=== PATIENT | male | born 1970 | race Caucasian/White ===

== ENCOUNTER 2020-11-13 11:00 | Emergency (ER) | payer MEDICAID, OTHER ==
[~2020-11-13] VITALS: Ht 180.3 cm; Wt 100.0 kg
[2020-11-13 11:58] LABS: BASOPHILS % 0.8 % (0.0-2.0); HEMATOCRIT. 44.7 % (42.0-52.0); HEMOGLOBIN. 15.4 g/dL (14.0-18.0); LYMPHOCYTES % 23.9 % (20.0-50.0); MEAN CORPUSCULAR HEMOGLOBIN 30.6 pg (28.0-32.0); MEAN PLATELET VOLUME 6.9 fl (7.4-10.4); MONOCYTES % 5.1 % (2.0-8.0); NEUTROPHILS % 67.2 % (40.0-76.0); PLATELET 276 x1000/uL (130-400); RED BLOOD CELL COUNT 5.02 mill/uL (4.7-6.1); RED CELL DISTRIBUTION WIDTH 12.6 % (11.6-14.6)
[2020-11-13 12:08] LABS: CHLORIDE 104 mEq/L (98-107)
[2020-11-13 12:21] LABS: VALPROIC ACID < 3.0 ug/mL (50-100)
[2020-11-13 12:24] LABS: CLARITY URINE CLEAR (CLEAR); COLOR URINE YELLOW (YELLOW); KETONES URINE NEGATIVE (NEGATIVE); LEUKOCYTE ESTERASE URINE NEGATIVE (NEGATIVE); NITRITE URINE NEGATIVE (NEGATIVE); OCCULT BLOOD URINE NEGATIVE (NEGATIVE); PH URINE 5.5 (4.5-8.0); PROTEIN URINE 2+ (NEGATIVE); SPECIFIC GRAVITY URINE 1.031 (1.005-1.030); UROBILINOGEN URINE 0.2 E.U./dL (0.2-1.0)
[2020-11-13 12:40] LABS: *AMPHETAMINES SCREEN URINE PRESUMTIVE POSITIVE (NEGATIVE); *BENZODIAZEPINES SCREEN URINE NEGATIVE (NEGATIVE); *COCAINE SCREEN URINE NEGATIVE (NEGATIVE)
[2020-11-13 12:41] LABS: CANNABINOID URINE SCREEN NEGATIVE (NEGATIVE); METHADONE URINE SCREEN NEGATIVE (NEGATIVE); OPIATES URINE SCREEN NEGATIVE (NEGATIVE); PHENCYCLIDINE URINE SCREEN NEGATIVE (NEGATIVE)
[2020-11-13 12:46] LABS: *BARBITURATES SCREEN URINE NEGATIVE (NEGATIVE)
[2020-11-13] MEDS ORDERED: KCL 20MEQ/100ML PREMIX 100 ML IV ONE (18:30)
[2020-11-13] MEDS ORDERED: INS NPH/REG HM 70-30 100 UNITS/ML 10ML VIAL (HUMULIN 70-30) SUBCUT ONE (18:30)
[2020-11-13] MEDS ORDERED: SODIUM CHLORIDE 0.9% 1,000 ML IV ONE (18:30)
[2020-11-13] MEDS ORDERED: POTASSIUM CHLORIDE 20MEQ/PACKET PO ONE (18:45)
[2020-11-14 05:15] VITALS: BP 125/72
== END 2020-11-14 05:16 | disposition home or self-care (01) ==
LOC: ER 11:00
DX: F15.121 Other stimulant abuse with intoxication delirium (principal); F16.129 Hallucinogen abuse with intoxication, unspecified; F32.9 Major depressive disorder, single episode, unspecified; E87.6 Hypokalemia; S00.01XA Abrasion of scalp, initial encounter; G40.909 Epilepsy, unspecified, not intractable, without status epilepticus; E11.65 Type 2 diabetes mellitus with hyperglycemia; R78.81 Bacteremia; R80.9 Proteinuria, unspecified; K21.9 Gastro-esophageal reflux disease without esophagitis; F41.9 Anxiety disorder, unspecified; F10.239 Alcohol dependence with withdrawal, unspecified; Y90.9 Presence of alcohol in blood, level not specified; G90.8 Other disorders of autonomic nervous system; F17.210 Nicotine dependence, cigarettes, uncomplicated; Z59.0 Homelessness; W19.XXXA Unspecified fall, initial encounter; Y93.89 Activity, other specified; Y92.018 Other place in single-family (private) house as the place of occurrence of the external cause
CPT/HCPCS: 36415; 70450; 71045; 80053; 80165; 80185; 80305; 80307; 81003; 82542; 83605; 83880; 84484; 85025; 85651; 86141; 93005; 96360; 96361; 96372; 99285; J1815; J7030; J3480